=== PATIENT | female | born 1985 ===

== ENCOUNTER 2018-12-06 17:17 | Emergency (ER) ==
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
--- OUTSIDE RECORDS SUMMARY | 2018-12-06 17:18 | XMS REPORT ---
[facility] Address Unknown Phone Unavailable Care Team Providers Care Utilization Reviewer Name Role Phone TI CORDOVA Unavailable Unavailable Payers Payer Name Policy Type Policy Number Effective Date Expiration Date Problems This patient has no known problems. Allergies, Adverse Reactions, Alerts Allergy Name Allergy Type Status Severity Reaction(s) Onset Date Inactive Date Treating Clinician Comments NSAIDS (Non-Steroidal Anti-Inflamma DA Active U 2018-10-13 00:00:00 tramadol DA Active U 2018-10-13 00:00:00 ibuprofen DA Active MN 2018-09-12 00:00:00 Medications This patient has no known medications. Results Test Description Test Time Test Comments Text Results Atomic Results Result Comments CT ABDOMEN/PELVIS W/CONTRAST 2018-03-04 16:53:06 CT of the abdomen and pelvis with contrast:History: Lower abdominal painMultidetector CT of the abdomen and pelvis was performed following intravenousinjection 100 L of Isovue-300. Total DLP 1151 mGy-cm.The visualized lung bases are unremarkable.The liver, spleen, pancreas, adrenals, kidneys and abdominal aorta appearnormal. The gallbladder is surgically absent. Surgical clips are noted in thegastroesophageal region and proximal stomach with findings suggesting gastricbypass. This can be correlated clinically. There are additional surgical staplesor clips also present in the upper abdomen and left lower quadrant. There is areported history of prior colostomy but none is visualized currently.The bladder is unremarkable. The uterus is surgically absent. The appendix isnot definitively visualized but there are no acute inflammatory changes.There is minimal free fluid in the lower pelvis which is within physiologiclimits. No lymphadenopathy is identified. There are no acute bony abnormalities.Laminectomy changes in the lower lumbar region are incidentally noted.Impression: No acute abnormality of the abdomen or pelvis. Postoperative changesas noted.This final report was electronically signed by Dr Madi Rudolph MD 03/04/20184:46 PMDictated By: MADI RUDOLPHDate: 03/04/2018 16:53 URINALYSIS WITH MICROSCOPIC 2018-03-04 16:13:00 Color (test code=UCOLR) Yellow Clarity (test code=UCLAR) CLOUDY Glucose (test code=UGLUC) NEGATIVE NEGATIVE Bilirubin (test code=UBILI) NEGATIVE NEGATIVE Ketones (test code=UKET) NEGATIVE NEGATIVE Specific [place] (test code=USPGR) 1.015 1.005-1.030 Blood (test code=UBLD) NEGATIVE NEGATIVE PH (test code=UPH) 7.0 4.5-8.0 Protein (test code=UPROT) NEGATIVE NEGATIVE Urobilinogen (test code=U UROB) 0.2 >0.2 Nitrite (test code=UNITR) NEGATIVE NEGATIVE Leukocyte Esterase (test code=ULEUK) NEGATIVE NEGATIVE WBC (test code=WBCUR) None Seen 0-5 RBC (test code=RBCUR) None Seen 0-5 Epithial Cells (test code=U EPI) TNTC 0-10 Mucous (test code=UMUC) None Seen None Seen Bacteria (test code=UBACT) Trace None Seen,Trace Crystals Urine (test code=URCRYS) Many Amorphous Sediment None Seen [id number] 15:23:00* Test Item Value Reference Range Comments Glucose (test code=GLU) 92 mg/dl 75-110 BUN (test code=BUN) 15.0 mg/dl 6.0-17.0 Creatinine (test code=CREA) 0.7 mg/dl 0.4-1.2 Sodium (test code=NA) 144 mmol/l 137-145 Potassium (test code=K) 4.2 mmol/l 3.5-5.0 Chloride (test code=CL) 114 mmol/l 98-107 CO2 (test code=CO2) 20 mmol/l 22-30 Calcium (test code=CALC) 8.9 mg/dl 8.4-10.2 T Protein (test code=TP) 7.1 gm/dl 5.1-8.7 Albumin (test code=ALB) 4.1 gm/dl 3.5-4.6 A/G Ratio (test code=AGRAT) 1.4 % 1.1-2.2 AST (SGOT) (test code=AST) 62 U/L 11-36 ALT (SGPT) (test code=ALT) 46 U/L 11-40 Alkaline Phos (test code=ALKP) 95 U/L 47-114 Total Bilirubin (test code=TBIL) 0.3 mg/dl 0.2-1.2 Globulin (test code=GLOBU) 3.0 gm/dl 2.3-3.5 Anion Gap (test code=GAP) 10 Calcium, Corrected (test code=CALCCORR) 8.8 mg/dl 8.4-10.2 Various formulas exist for corrected serum calcium results, each yielding different values. This corrected result was based on the formula: Corrected Calcium=SerumCalcium + [0.8 * ( 4 - SerumAlbumin)] EGFR if (test code=EGFRAA) >60 mL/min/1.73m\\S\\2 EGFR if Non- (test code=EGFRNA) >60 mL/min/1.73m\\S\\2 Estimated Glomerular Filtration Rate (eGFR) Reference Intervals Decision Points for 18 years and older and average body mass: >=60 Does not exclude kidney disease. 30 - 59 Suggests moderate chronic kidney disease and indicates the need for further investigation including assessment of proteinuria and cardiovascular factors. < 30 Usually indicates a need for referral for assessment and management of chronic kidney failure. LIPASE, [id number] 15:23:00* Test Item Value Reference Range Comments Lipase (test code=LIPA) 12 U/L 8-223 CBC WITH AUTO [id number] 15:15:00* Test Item Value Reference Range Comments WBC (test code=WBC) 5.42 10\\S\\3/ul 4.80-10.80 RBC (test code=RBC) 3.81 10\\S\\6/ul 4.20-5.40 Hemoglobin (test code=HGB) 10.5 gm/dl 12.0-14.0 Hematocrit (test code=HCT) 34.2 % 37.0-47.0 MCV (test code=MCV) 89.8 fL 81.0-99.0 MCH (test code=MCH) 27.6 pg 27.0-31.0 MCHC (test code=MCHC) 30.7 gm/dl 33.0-37.0 RDW (test code=RDWVC) 15.2 % 11.5-14.5 Platelet (test code=PLT) 224 10\\S\\3/ul 130-400 MPV (test code=MPV) 9.9 fL 7.4-10.4 "NOT MEASURED" RESULTS ARE DISPLAYED WHEN THE INSTRUMENT HAS A SUPPRESSED OR UNREPORTABLE RESULT. THIS WILL MOST OFTEN HAPPEN WITH THE MPV WHEN THERE IS AN ABNORMAL PLATELET DISTRIBUTION DUE TO A CR ITICAL LOW VALUE OR PLATELET CLUMPING. THE RDW MAY BE SUPPRESSED IF THERE ARE MULTIPLE PEAKS PRESENT ON THE RBC HISTOGRAM. IN THIS CASE, A MANUAL REVIEW OF THE SLIDE WILL BE PERFORMED, AND RBC MORPHOLOGY WILL BE NOTED ON THE REPORT. NE% (test code=NE) 53.8 % 42.0-75.0 LY% (test code=LY) 35.6 % 13.0-42.0 MO% (test code=MO) 7.9 % 4.0-14.0 EO% (test code=EO) 1.8 % 1.0-3.0 BA% (test code=BA) 0.7 % 1.0-3.0 IG% (test code=IG%) 0.2 % 0.0-0.4
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
== END 2018-12-06 17:23 | disposition short-term general hospital (02) ==
LOC: ER 17:17
DX: Z53.21 Procedure and treatment not carried out due to patient leaving prior to being seen by health care provider (principal)